=== PATIENT | female | born 1950 | race American Indian/Alaskan Native ===

== ENCOUNTER 2017-09-02 20:12 | Emergency (ER) | payer MEDICARE ==
[2017-09-02 20:13] VITALS: BMI 41.1
[2017-09-02] MEDS ORDERED: Sodium Chloride 0.9% 500 ML IV ONE (20:51)
[2017-09-02] MEDS ORDERED: Iohexol 240 (50 ml) PO STA (21:46)
[2017-09-02 21:53] LABS: BASO # 0.1 K/uL (0.0-0.2); BASO % 1.3 % (0.0-2.0); EOS # 0.1 K/uL (0.0-0.7); EOS % 1.2 % (0.0-4.0); HEMOGLOBIN 12.8 g/dL (11.0-16.0); LYMPH % 28.6 % (20.0-40.0); MEAN CELL VOLUME 82.3 fL (81.0-99.0); MEAN CORPUSCULAR HEMOGLOBIN 27.4 pg (27.0-31.0); MEAN CORPUSCULAR HGB CONC 33.3 g/dL (33.0-37.0); MEAN PLATELET VOLUME 8.6 fL (7.2-11.7); MONO # 0.7 K/uL (0.0-0.8); MONO % 6.9 % (0.0-10.0); NEUT # 6.6 K/uL (1.8-7.0); NRBC % 0.1 % (0.0-2.0); RBC 4.65 Mil/uL (3.80-5.20); RED CELL DISTRIBUTION WIDTH 13.7 % (11.5-14.5); WHITE BLOOD COUNT 10.6 K/uL (4.8-10.8)
[2017-09-02 22:06] LABS: ALB/GLOB RATIO 0.9 (1.0-2.1); ALBUMIN 3.8 g/dL (3.5-5.0); ALT/SGPT 17 U/L (9-52); AST/SGOT 30 U/L (14-36); BLOOD UREA NITROGEN 23 mg/dL (7-17); CALCIUM 8.3 mg/dl (8.6-10.4); GFR AFRICAN-AMERICAN > 60; GFR NON-AFRICAN AMERICAN 55; LIPASE 176 U/L (23-300)
[2017-09-02] MEDS ORDERED: Iohexol 240 (50 ml) ONE (22:17)
--- NOTE | 2017-09-02 22:45 | C.PDOC ---
Time Seen by Provider: 09/02/17 20:39 Chief Complaint (Nursing): Abdominal Pain Past Medical History Vital Signs: Last Vital Signs Temp 98.7 F 09/02/17 20:31 Pulse 70 09/02/17 20:31 Resp 14 09/02/17 20:31 BP 117/70 09/02/17 20:31 Pulse Ox 97 09/02/17 20:31 - Medical History PMH: Arthritis, Cardia Arrhythmia (bradycardia SSS), HTN, TIA Denies: Chronic Kidney Disease Surgical History: Endoscopy, Pacemaker (2009) - [facility] Procedures CLOSED ENDOSCOPIC BIOPSY OF LARGE INTESTINE (01/11/14) Family History: States: [place] (Mother) - Social History Hx Tobacco Use: No Hx Alcohol Use: No Hx Substance Use: No - Immunization History Hx Tetanus Toxoid Vaccination: No Hx Influenza Vaccination: No Hx Pneumococcal Vaccination: No ED Course And Treatment - Laboratory Results Result Diagrams: 09/02/17 21:49 09/02/17 21:49 O2 Sat by Pulse Oximetry: 97 Disposition - Disposition
[2017-09-02] MEDS ORDERED: Iodixanol 320 mg/ml 150 ml Bottle IV ONE (23:15)
--- NOTE | 2017-09-02 23:20 | C.PDOC ---
History Of Present Illness 67 year old female, with a past medical history of HTN, who presents to the emergency department complaining of abdominal pain onset for x1 week. Patient reports the pain will sometimes radiate to her back. Patient states her last bowel movement was yesterday but was constipated prior to that and had to take laxative. She denies any nausea, vomit, diarrhea or dysuria. No further medical complaints. PMD: None provided. Time Seen by Provider: 09/02/17 20:39 Chief Complaint (Nursing): Abdominal Pain History Per: Patient History/Exam Limitations: no limitations Onset/Duration Of Symptoms: Days (x1 week) Current Symptoms Are (Timing): Still Present Radiation Of Pain To:: Back Associated Symptoms: denies: Nausea, Vomiting, Diarrhea, Urinary Symptoms ( dysuria) Last Bowel Movement: Yesterday Past Medical History Reviewed: Historical Data, Nursing Documentation, Vital Signs Vital Signs: Last Vital Signs Temp 99.2 F 09/03/17 02:22 Pulse 82 09/03/17 02:22 Resp 18 09/03/17 02:22 BP 137/93 H 09/03/17 02:22 Pulse Ox 99 09/03/17 02:22 - Medical History PMH: Arthritis, Cardia Arrhythmia (bradycardia SSS), HTN, TIA Denies: Chronic Kidney Disease Surgical History: Endoscopy, Pacemaker (2009) - [facility] Procedures CLOSED ENDOSCOPIC BIOPSY OF LARGE INTESTINE (01/11/14) Family History: States: [place] (Mother) - Social History Hx Tobacco Use: No Hx Alcohol Use: No Hx Substance Use: No - Immunization History Hx Tetanus Toxoid Vaccination: No Hx Influenza Vaccination: No Hx Pneumococcal Vaccination: No Review Of Systems Except As Marked, All Systems Reviewed And Found Negative. Gastrointestinal: Positive for: Abdominal Pain Physical Exam - Physical Exam Appears: Other (comfortable) Skin: Normal Color, Warm, Dry Head: Atraumatic, Normacephalic Eye(s): bilateral: Normal Inspection, PERRL, EOMI Neck: Normal ROM Cardiovascular: Rhythm Regular, No Murmur Respiratory: Normal Breath Sounds, No Wheezing Gastrointestinal/Abdominal: Tenderness (mild diffuse), Other (obese. Negative Barry's sign and McBurney's point) Back: Normal Inspection, No CVA Tenderness, No Vertebral Tenderness Extremity: Normal ROM (upper and lower extremities), No Deformity, No Swelling Neurological/Psych: Oriented x3 Gait: Steady ED Course And Treatment - Laboratory Results Result Diagrams: 09/02/17 21:49 09/02/17 21:49 O2 Sat by Pulse Oximetry: 97 (RA) Pulse Ox Interpretation: Normal Progress Note: Initial Plan: Abd Pelvis PO & IV Contrast [CT], CMP, Lipase, CBC w/ differential, Obstructive series [RAD], Omnipaque 240 50 ml PO, Sodium Chloride 0.9% 500 ml IV 1,000 mls/hr, Urinalysis. Abdomen CT: 01:54 FINDINGS: . The liver is normal. . The spleen is normal. . The pancreas is normal. . No gallstones. . No hydronephrosis or perinephric stranding. . The bowel appears normal. No small bowel obstruction. . No evidence of appendicitis. . There is a 2.5 cm right ovarian cyst that has increased minimally in size. from 2.2 cm on prior. The near stability over 4 year time interval suggests. benignity. . The uterus has been surgically removed. . Heterogeneity and indistinctness of the left abdominis rectus muscle in the. deep pelvis similar to prior. . Lymph nodes are present in the groins bilaterally. . . . IMPRESSION: . No acute findings. Disposition Counseled Patient/Family Regarding: Diagnosis, Need For Followup, Rx Given, Smoking Cessation - Disposition Referrals: [facility] [Outside] Disposition: HOME/ ROUTINE Disposition Time: 02:00 Condition: STABLE Additional Instructions: FOLLOW UP WITH YOUR DOCTOR/CLINIC IN 1-2 DAYS USE MEDICATION DIRECTED RETURN TO ER IF SYMPTOMS WORSEN Prescriptions: Ciprofloxacin [Cipro] 1 tab PO BID #14 tab Instructions: Urinary Tract Infection, Adult (DC) Forms: [employer] (British) Print Language: ITALIAN - POA Present On Arrival: None - Clinical Impression Clinical Impression: Abdominal pain, UTI (urinary tract infection) - Scribe Statement The provider has reviewed the documentation as recorded by the Sethiblandry Bell All medical record entries made by the Sethiblandry were at my direction and personally dictated by me. I have reviewed the chart and agree that the record accurately reflects my personal performance of the history, physical exam, medical decision making, and the department course for this patient. I have also personally directed, reviewed, and agree with the discharge instructions and disposition.
[2017-09-03 00:01] LABS: SQUAMOUS EPITHIAL 3 /hpf (0-5); URINE BACTERIA MOD (<OCC); URINE BILIRUBIN NEGATIVE (NEGATIVE); URINE BLOOD NEGATIVE (NEGATIVE); URINE CLARITY Hazy (Clear); URINE COLOR Yellow (YELLOW); URINE GLUCOSE (UA) NORMAL (Normal); URINE LEUKOCYTE ESTERASE TRACE Leu/uL (Negative); URINE PROTEIN NEGATIVE (NEGATIVE); URINE UROBILINOGEN NORMAL mg/dL (0.2-1.0)
--- NOTE | 2017-09-03 01:55 | CT ---
EXAM: CT Abdomen and Pelvis With Intravenous Contrast EXAM DATE/TIME: 09/02/2017 9:45 PM CLINICAL HISTORY: 67 years old, female; Pain; Abdominal pain; Prior surgery; Patient HX: 01-10-14 images sent; Additional info: Abdominal pain, R/O sbo TECHNIQUE: Axial computed tomography images of the abdomen and pelvis with intravenous contrast. All CT scans at this facility use one or more dose reduction techniques, viz.: automated exposure control; ma/kV adjustment per patient size (including targeted exams where dose is matched to indication; i.e. head); or iterative reconstruction technique. Coronal and sagittal reformatted images were created and reviewed. CONTRAST: 100 mL of [id number] administered intravenously. COMPARISON: CT - ABD PELVIS PO IV CONTRAST 2014-01-10 22:46 FINDINGS: The liver is normal. The spleen is normal. The pancreas is normal. No gallstones. No hydronephrosis or perinephric stranding. The bowel appears normal. No small bowel obstruction. No evidence of appendicitis. There is a 2.5 cm right ovarian cyst that has increased minimally in size from 2.2 cm on prior. The near stability over 4 year time interval suggests benignity. The uterus has been surgically removed. Heterogeneity and indistinctness of the left abdominis rectus muscle in the deep pelvis similar to prior. Lymph nodes are present in the groins bilaterally. IMPRESSION: No acute findings.
[2017-09-03 02:23] VITALS: BP 137/93; PULSE 82; RESP 18; TEMP 99.2
[2017-09-03 05:50] VITALS: O2SAT 97
--- NOTE | 2017-09-03 13:25 | RAD ---
PROCEDURE: Radiographs of the chest and abdomen (obstructive series) HISTORY: Abdominal pain and constipation COMPARISON: Comparison made with CT scan abdomen pelvis 09/03/2017 at 0024 hours and chest radiograph 04/06/2016. TECHNIQUE: AP radiograph of the chest, with upright and supine radiographs of the abdomen. FINDINGS: CHEST: Heart size is within range of normal. Aorta slightly ectatic and uncoiled. No change bipolar pacemaker. . No evidence of free intraperitoneal air seen under the diaphragmatic surfaces. Multilevel degenerative spondylosis of the thoracic spine ABDOMEN AND PELVIS: Nonobstructive/nonspecific bowel gas pattern. . Mild multilevel degenerative spondylosis of the lumbar spine. IMPRESSION: No acute cardiopulmonary disease. No evidence of acute mechanical bowel obstruction or free intraperitoneal air.
== END 2017-09-03 02:35 | disposition home or self-care (01) ==
LOC: C.ER 20:12
DX: N39.0 Urinary tract infection, site not specified (principal); R10.9 Unspecified abdominal pain; I10 Essential (primary) hypertension
CPT/HCPCS: 74022; 74177; 80053; 81001; 83690; 85025; 87086; 99285; J7040; Q9966; Q9967

== ENCOUNTER 2017-09-08 10:26 | Emergency (ER) | payer MEDICARE ==
[2017-09-08 11:04] VITALS: O2SAT 100; BMI 43.0
[2017-09-08 12:18] LABS: SQUAMOUS EPITHIAL 11 /hpf (0-5); URINE BACTERIA MANY (<OCC); URINE BILIRUBIN NEGATIVE (NEGATIVE); URINE BLOOD NEGATIVE (NEGATIVE); URINE CLARITY Hazy (Clear); URINE COLOR Yellow (YELLOW); URINE GLUCOSE (UA) NORMAL (Normal); URINE PROTEIN NEGATIVE (NEGATIVE); URINE UROBILINOGEN NORMAL mg/dL (0.2-1.0)
[2017-09-08 12:21] LABS: URINE LEUKOCYTE ESTERASE 1+ Leu/uL (Negative)
--- NOTE | 2017-09-08 13:51 | C.PDOC ---
History Of Present Illness 67 y/o female presents to the ED for evaluation of a rash, onset after starting antibiotics 4 days ago. Patient was seen here on 09/03/17, diagnosed with UTI, and discharged on Cipro. States that immediately after taking Cipro she noticed some pruritus. Now patient has developed diffuse hives to the trunk and extremities. She denies any SOB, difficulty swallowing, throat/lip swelling, or voice changes. Also states her UTI symptoms persist despite taking antibiotics. Time Seen by Provider: 09/08/17 11:22 Chief Complaint (Nursing): Allergic Reaction History Per: Patient History/Exam Limitations: no limitations Onset/Duration Of Symptoms: Days Current Symptoms Are (Timing): Still Present Past Medical History Reviewed: Historical Data, Nursing Documentation, Vital Signs Vital Signs: Last Vital Signs Temp 98.4 F 09/08/17 13:58 Pulse 78 09/08/17 13:58 Resp 20 09/08/17 13:58 BP 132/70 09/08/17 13:58 Pulse Ox 100 09/08/17 14:47 - Medical History PMH: Arthritis, Cardia Arrhythmia (bradycardia SSS), HTN, TIA Denies: Chronic Kidney Disease Surgical History: Endoscopy, Pacemaker (2009) - [facility] Procedures CLOSED ENDOSCOPIC BIOPSY OF LARGE INTESTINE (01/11/14) Family History: States: [place] (Mother) - Social History Hx Tobacco Use: No Hx Alcohol Use: No Hx Substance Use: No - Immunization History Hx Tetanus Toxoid Vaccination: No Hx Influenza Vaccination: No Hx Pneumococcal Vaccination: No Review Of Systems Except As Marked, All Systems Reviewed And Found Negative. ENT: Negative for: Mouth Swelling, Throat Swelling, Other (difficulty swallowing , voice changes) Respiratory: Negative for: Shortness of Breath Genitourinary: Positive for: Dysuria Skin: Positive for: Rash (with itchiness) Physical Exam - Physical Exam Appears: Non-toxic, No Acute Distress Skin: Warm, Dry, Rash (urticarial rash noted diffusely to trunk and extremities) Head: Atraumatic, Normacephalic Eye(s): bilateral: Normal Inspection, PERRL, EOMI Nose: Normal Oral Mucosa: Moist Lips: Normal Appearing, No Swelling Throat: Normal (patent airway) Neck: Normal ROM Cardiovascular: Rhythm Regular, No Murmur Respiratory: Normal Breath Sounds, No Accessory Muscle Use Gastrointestinal/Abdominal: Soft, No Tenderness, No Distention Extremity: Bilateral: Atraumatic, Normal Color And Temperature, Normal ROM Neurological/Psych: Oriented x3, Normal Speech ED Course And Treatment O2 Sat by Pulse Oximetry: 100 (RA) Pulse Ox Interpretation: Normal Progress Note: Repeated UA, showing many bacteria present in urine. Sent urine culture. Patient given Benadryl, Pepcid, and prednisone. Will change antibiotic to Macrobid, initial dose given in the ED. Disposition Counseled Patient/Family Regarding: Studies Performed, Diagnosis, Need For Followup, Rx Given - Disposition Disposition: HOME/ ROUTINE Disposition Time: 13:40 Condition: STABLE Additional Instructions: Follow up with your PMD within 1-2 days. Return to ED if feel worse. Stop taking Cipro and start taking Macrobid instead. Prescriptions: DiphenhydrAMINE [Benadryl] 25 mg PO .Q4-6 H #30 cap Nitrofurantoin Macrocrystals [Macrobid] 1 cap PO BID #14 cap Famotidine [Pepcid] 20 mg PO BID #20 tab predniSONE [predniSONE Tab] 2 tab PO DAILY #8 tab Instructions: Urinary Tract Infections in Adults, Drug Allergy Forms: [email or web address] (Korean) - POA Present On Arrival: None - Clinical Impression Clinical Impression: Allergic urticaria, UTI (urinary tract infection) - PA / SAS ANALYST / Resident Statement MD/DO has reviewed & agrees with the documentation as recorded. - Scribe Statement The provider has reviewed the documentation as recorded by the Scribe (Chary Fish) All medical record entries made by the Scribe were at my direction and personally dictated by me. I have reviewed the chart and agree that the record accurately reflects my personal performance of the history, physical exam, medical decision making, and the department course for this patient. I have also personally directed, reviewed, and agree with the discharge instructions and disposition.
[2017-09-08 13:59] VITALS: BP 132/70; PULSE 78; RESP 20; TEMP 98.4
== END 2017-09-08 14:00 | disposition home or self-care (01) ==
LOC: C.ER 10:26
DX: L50.0 Allergic urticaria (principal); N39.0 Urinary tract infection, site not specified

== ENCOUNTER 2018-02-04 19:00 | Emergency (ER) | payer MEDICARE ==
[2018-02-04 19:01] VITALS: BMI 43.0
[2018-02-04 19:28] VITALS: BP 153/71; PULSE 102; TEMP 99; O2SAT 99
--- NOTE | 2018-02-04 19:56 | C.PDOC ---
History Of Present Illness 67 year old female, with Hx of arthritis on both knees and PSHx left knee replacement and pending right knee replacement, presents to ED complaining of baseline right knee pain. States she takes tylenol without significant relief. Time Seen by Provider: 02/04/18 19:48 Chief Complaint (Nursing): Lower Extremity Problem/Injury History Per: Patient History/Exam Limitations: no limitations Onset/Duration Of Symptoms: Days Current Symptoms Are (Timing): Still Present Past Medical History Reviewed: Historical Data, Nursing Documentation, Vital Signs Vital Signs: Last Vital Signs Temp 99 F 02/04/18 19:24 Pulse 102 H 02/04/18 19:24 Resp 15 02/04/18 19:24 BP 153/71 H 02/04/18 19:24 Pulse Ox 99 02/04/18 19:24 - Medical History PMH: Arthritis, Cardia Arrhythmia (bradycardia SSS), HTN, TIA Denies: Chronic Kidney Disease Surgical History: Endoscopy, Pacemaker (2009) - [facility] Procedures CLOSED ENDOSCOPIC BIOPSY OF LARGE INTESTINE (01/11/14) Family History: States: [place] (Mother) - Social History Hx Tobacco Use: No Hx Alcohol Use: No Hx Substance Use: No - Immunization History Hx Tetanus Toxoid Vaccination: No Hx Influenza Vaccination: Yes Hx Pneumococcal Vaccination: Yes Review Of Systems Except As Marked, All Systems Reviewed And Found Negative. Constitutional: Negative for: Fever, Chills Cardiovascular: Negative for: Chest Pain Respiratory: Negative for: Shortness of Breath Gastrointestinal: Negative for: Nausea, Vomiting Musculoskeletal: Positive for: Other (R Knee Pain) Neurological: Negative for: Weakness, Numbness Physical Exam - Physical Exam Appears: Non-toxic, No Acute Distress Skin: Warm, Dry Head: Atraumatic, Normacephalic Eye(s): bilateral: Other (Pinpoint pupils, denies narcotic use) Oral Mucosa: Moist Cardiovascular: Rhythm Regular Respiratory: Normal Breath Sounds Gastrointestinal/Abdominal: Soft, No Tenderness Extremity: No Other (Joint effusion to R knee; no TTP; no erythema ) Extremity: Bilateral: Other (obese and plump without edema; symmetrical) Neurological/Psych: Oriented x3, Normal Speech ED Course And Treatment O2 Sat by Pulse Oximetry: 99 (RA) Pulse Ox Interpretation: Normal Medical Decision Making Medical Decision Making: Impression: Right Knee Pain Plan: --Motrin chronic R knee pain, no s/s of DVT as obesity of b/l lower legs symmetrical and no edema pinpoint pupils and asleep on approach suggest narcotics use, but [place]MP neg Educated to use Motrin in stead of Tylenol for arthritis pain Disposition Doctor Will See Patient In The: Office Counseled Patient/Family Regarding: Studies Performed, Diagnosis - Disposition Referrals: [facility] [Outside] [facility] [Outside] [facility] [Outside] [facility] [Outside] Disposition: HOME/ ROUTINE Disposition Time: 19:55 Condition: GOOD Additional Instructions: ice packs to R knee 1/2 hour per hour, nothing hot Motrin/Advil/Ibuprofen 400-600 mg every 6 hours as needed for arthritis pain outpatient follow-up as needed. Instructions: Osteoarthritis (DC) Forms: [employer] (Croatian) - Clinical Impression Clinical Impression: Arthritis of knee - Scribe Statement The provider has reviewed the documentation as recorded by the Jocelin Jiménez Provider Attestation: All medical record entries made by the Sethiblandry were at my direction and personally dictated by me. I have reviewed the chart and agree that the record accurately reflects my personal performance of the history, physical exam, medical decision making, and the department course for this patient. I have also personally directed, reviewed, and agree with the discharge instructions and disposition.
[2018-02-04 20:08] VITALS: RESP 18
== END 2018-02-04 20:07 | disposition home or self-care (01) ==
LOC: C.ER 19:00
DX: M13.861 Other specified arthritis, right knee (principal)